=== PATIENT | male | born 1945 | race Caucasian/White ===

== ENCOUNTER 2017-03-03 11:16 | Inpatient (IN) | payer OTHER, MEDICARE ==
--- NOTE | 2017-03-03 11:28 | ER Document Report ---
ED Medical Screen (RME) - General Chief Complaint: General Weakness Stated Complaint: GENERAL WEAKNESS Time Seen by Provider: 03/03/17 11:26 Notes: Patient reports severe weakness for 1 week. He states she has had nausea but no vomiting. He denies diarrhea. He states he does take a diuretic. He states he has severe shortness of breath with exertion. He states if he tries to brush his teeth he has to sit down from being tired. TRAVEL OUTSIDE OF THE [place] IN LAST 30 DAYS: No - Related Data Allergies/Adverse Reactions: No Known Allergies Allergy (Verified 03/03/17 11:20) Past Medical History - Past Medical History Cardiac Medical History: Reports: Hx Hypercholesterolemia, Hx Hypertension Renal/ Medical History: Reports: Hx Kidney Stones. Denies: Hx Peritoneal Dialysis - Immunizations Hx Diphtheria, Pertussis, Tetanus Vaccination: Yes Physical Exam - Vital signs Vitals: Temp Pulse Resp BP Pulse Ox 98.3 F 93 18 115/92 H 97 03/03/17 11:21 03/03/17 11:21 03/03/17 11:21 03/03/17 11:21 03/03/17 11:21 Course - Vital Signs Vital signs: Temp Pulse Resp BP Pulse Ox 98.3 F 93 18 115/92 H 97 03/03/17 11:21 03/03/17 11:21 03/03/17 11:21 03/03/17 11:21 03/03/17 11:21
[2017-03-03 12:12] LABS: APPEARANCE,URINE SLIGHTLY-CLOUDY; BILIRUBIN,URINE NEGATIVE (NEGATIVE); GLUCOSE, URINE NEGATIVE (NEGATIVE); KETONES,URINE NEGATIVE (NEGATIVE); LEUKOCYTE ESTERASE,URINE MODERATE (NEGATIVE); NITRITE,URINE NEGATIVE (NEGATIVE); PROTEIN,URINE 30 mg/dL (NEGATIVE); URINE SPECIFIC GRAVITY 1.017
[2017-03-03 12:25] LABS: ALANINE AMINOTRANSFERASE 150 U/L (21-72); ALBUMIN 3.8 g/dL (3.5-5.0); ALKALINE PHOSPHATASE 201 U/L (38-126); ANION GAP 19 (5-19); ASPARTATE AMINO TRANSFERASE 109 U/L (17-59); BILIRUBIN,DIRECT 0.7 mg/dL (0.0-0.4); BILIRUBIN,TOTAL 1.1 mg/dL (0.2-1.3); BLOOD UREA NITROGEN 79 mg/dL (7-20); CALCIUM 9.8 mg/dL (8.4-10.2); CARBON DIOXIDE 17 mmol/L (22-30); CHLORIDE 99 mmol/L (98-107); CREATININE RESULT 4.56 mg/dL (0.52-1.25); GLUCOSE 122 mg/dL (75-110); MAGNESIUM 2.7 mg/dL (1.6-2.3); POTASSIUM 4.3 mmol/L (3.6-5.0); SODIUM 135.3 mmol/L (137-145)
[2017-03-03] MEDS ORDERED: NORMAL SALINE 1000 ML 1,000 ML IV ONE ×2 (12:35→19:54)
--- NOTE | 2017-03-03 12:45 | ER Document Report ---
ED General - General Chief Complaint: General Weakness Stated Complaint: GENERAL WEAKNESS Time Seen by Provider: 03/03/17 11:26 Notes: Patient says he has been experiencing extreme weakness, "totally exhausted" and no appetite for the past week. He also had symptoms of a UTI with urgency and frequency one week ago and saw his primary care physician who diagnosed him with a UTI and put him on an antibiotic. He says he is taking it twice a day and will be finished tomorrow. All of the UTI symptoms resolved, but the weakness and other symptoms have continued. He has been nauseated and had some dry heaves, but not actually vomiting because he has not been eating or drinking much. Has not had any change in his bowel movements. No blood in his stools. Patient denies any fever although he has felt some chills. Has felt extreme shortness of breath on exertion such as when he gets up to go to brush his teeth. Patient went to see his primary care provider today who referred him here for workup and evaluation for possible dehydration. Patient has a history of prostate condition. He describes having had a cystoscopy at the end of December. Following that procedure, the patient developed a UTI and was also treated with an antibiotic at that time. He is to have laser surgery on his prostate by Dr. Young, urologist in [place]. TRAVEL OUTSIDE OF THE [place] IN LAST 30 DAYS: No - Related Data Allergies/Adverse Reactions: No Known Allergies Allergy (Verified 03/03/17 11:20) Home Medications: Current Home Medications Ascorbic Acid [Vitamin C] 1,000 mg PO DAILY 03/03/17 [History] Aspirin [Aspirin 81 mg Chewable Tablet] 81 mg PO DAILY 03/03/17 [History] Hydrochlorothiazide 12.5 mg PO DAILY 03/03/17 [History] Losartan Potassium [Cozaar 100 mg Tablet] 100 mg PO DAILY 03/03/17 [History] Simvastatin [Zocor 20 mg Tablet] 20 mg PO DAILY 03/03/17 [History] Tamsulosin HCl 0.4 mg PO DAILY 03/03/17 [History] Past Medical History - Social History Smoking Status: Unknown if Ever Smoked Cigarette use (# per day): No Frequency of alcohol use: Occasional Family History: Reviewed & Not Pertinent Patient has suicidal ideation: No Patient has homicidal ideation: No - Past Medical History Cardiac Medical History: Reports: Hx Hypercholesterolemia, Hx Hypertension Endocrine Medical History: Denies: Hx Diabetes Mellitus Type 1, Hx Diabetes Mellitus Type 2 Renal/ Medical History: Reports: Hx Benign Prostatic Hyperplasia, Hx Kidney Stones. Denies: Hx End Stage Renal Disease, Hx Renal Insufficiency Malignancy Medical History: Reports None Past Surgical History: Reports: Other - Cystoscopy in Dec, 2016 - Immunizations Hx Diphtheria, Pertussis, Tetanus Vaccination: Yes Review of Systems - Review of Systems Notes: REVIEW OF SYSTEMS: CONSTITUTIONAL : Denies fever. Has had chills. EENT: Denies eye, ear, nose or mouth or throat pain or other symptoms. CARDIOVASCULAR: Denies chest pain. RESPIRATORY: Denies cough, chest congestion, feels shortness of breath with any even slight exertional activity. GASTROINTESTINAL: Denies abdominal pain. Has had nausea and dry heaves. No change in bowel movements. No blood in stools. GENITOURINARY: Denies difficulty or painful urinating, urinary frequency, blood in urine at this time. MUSCULOSKELETAL: Denies back or neck pain. Denies joint pain or swelling. SKIN: Denies rash or skin lesions. NEUROLOGICAL: Denies LOC or altered mental status. Denies headache. Denies sensory loss or motor deficits. Psychological: Patient says he is concerned and stressed over his health and what is going on currently, but denies being stressed from any other issues ( personal relations, money, etc). ALL OTHER SYSTEMS REVIEWED AND NEGATIVE. Physical Exam - Vital signs Vitals: Temp Pulse Resp BP Pulse Ox 98.3 F 93 18 115/92 H 97 03/03/17 11:21 03/03/17 11:21 03/03/17 11:21 03/03/17 11:21 03/03/17 11:21 Interpretation: Normal - Notes Notes: PHYSICAL EXAMINATION: GENERAL: Well-appearing, in no acute distress. Vital signs are all normal. HEAD: Atraumatic, normocephalic. ENT: oropharynx clear without exudates. Moist mucous membranes. NECK: Normal range of motion, supple. LUNGS: Breath sounds clear and equal bilaterally. HEART: Regular rate and rhythm without murmurs. ABDOMEN: Soft, nontender. No guarding or rebound. BACK: No tenderness throughout entire back. EXTREMITIES: Normal range of motion without pain. No pain or swelling of either lower extremity. Negative Homans bilaterally. NEUROLOGICAL: Normal speech, normal gait. Normal sensory, motor, and reflex exams. Awake, alert, and oriented x3. Cranial nerves normal. PSYCH: Normal mood, normal affect. SKIN: Warm, dry, no rashes. Course - Re-evaluation Re-evalutation: 03/03/17 14:52 I was able to obtain lab work from this patient's primary care provider and he had chemistry studies done March,, and he had normal BUN and almost normal creatinine. He also had an EKG done from 8 years ago which showed a sinus rhythm with an intraventricular conduction defect but no acute changes. 03/03/17 19:07 Earlier, I discussed this patient's case with his primary care provider, Dr. Morel, at [facility]. Since the patient has a urologist in [place] that goes to their hospital, we felt that it was reasonable to try to transfer the patient to that facility. I spoke with Dr. Allen, hospitalist documentation analyst, who did not feel the patient needed to be sent there unless they required a urologic procedure. I spoke to the urologist documentation analyst and he felt the same so I will try to have him admitted at this hospital for hydration. We do have a urologist documentation analyst this day. We will did a bladder scan showing the patient has about 218 mL of urine in his bladder. He had just emptied his bladder about 45 minutes earlier. Does not feel as if he needs to urinate now. I am advised that that amount of urine is acceptable. 03/03/17 21:18 Renal ultrasound shows mild hydronephrosis of the left kidney and some renal calculi, but no other significant findings. I spoke with Dr. Young who will admit the patient for treatment here at this facility. - Vital Signs Vital signs: Temp Pulse Resp BP Pulse Ox 98.3 F 93 17 108/68 97 03/03/17 11:21 03/03/17 11:21 03/03/17 16:01 03/03/17 16:00 03/03/17 16:01 - Laboratory Result Diagrams: 03/03/17 12:51 03/03/17 11:51 Laboratory results interpreted by me: 03/03/17 03/03/17 03/03/17 11:35 11:51 11:51 WBC Seg Neuts % (Manual) Lymphocytes % (Manual) Abs Neuts (Manual) D-Dimer 2.49 H Sodium 135.3 L Carbon Dioxide 17 L BUN 79 H Creatinine 4.56 H Est GFR ( Amer) 16 L Est GFR (Non-Af Amer) 13 L Glucose 122 H Magnesium 2.7 H Direct Bilirubin 0.7 H AST 109 H ALT 150 H Alkaline Phosphatase 201 H Urine Protein 30 H Urine Blood SMALL H Urine Urobilinogen 2.0 H Ur Leukocyte Esterase MODERATE H 03/03/17 12:51 WBC 13.8 H Seg Neuts % (Manual) 89 H Lymphocytes % (Manual) 4 L Abs Neuts (Manual) 12.3 H D-Dimer Sodium Carbon Dioxide BUN Creatinine Est GFR ( Amer) Est GFR (Non-Af Amer) Glucose Magnesium Direct Bilirubin AST ALT Alkaline Phosphatase Urine Protein Urine Blood Urine Urobilinogen Ur Leukocyte Esterase - Diagnostic Test Radiology reviewed: Image reviewed, Reports reviewed - Renal ultrasound showed mild hydronephrosis of the left kidney with some calcified stones in the kidneys , but no other significant abnormality. - EKG Interpretation by Nd EKG shows normal: Sinus rhythm Rate: Normal Rhythm: NSR, PVC's [facility]/QRS: RBBB Discharge - Discharge Clinical Impression: Urinary tract infection, Renal insufficiency, Dehydration Condition: Stable Disposition: ADMITTED INPATIENT Admitting Provider: Hospitalist Unit Admitted: IMCU Referrals: YUE SUAREZ MD [Primary Care Provider] - Follow up as needed
[2017-03-03 13:10] LABS: HEMOGLOBIN 14.2 g/dL (13.5-17.0); HGB HCT DIFFERENCE 1.6; MEAN CORPUSCULAR HEMOGLOBIN 31.9 pg (27.0-33.4); MEAN CORPUSCULAR HGB CONC 34.5 g/dL (32.0-36.0); MEAN CORPUSCULAR VOLUME 92 fl (80-97); RED BLOOD COUNT 4.44 10^6/uL (4.35-5.55); WHITE BLOOD COUNT 13.8 10^3/uL (4.0-10.5)
--- NOTE | 2017-03-03 13:24 | RADIOLOGY REPORT (SQ) ---
EXAM DESCRIPTION: CHEST PA/LAT COMPLETED DATE/TIME: 03/03/2017 1:15 pm REASON FOR STUDY: Exertional S OB COMPARISON: 06/11/2011. EXAM PARAMETERS: NUMBER OF VIEWS: two views TECHNIQUE: Digital Frontal and Lateral radiographic views of the chest acquired. RADIATION DOSE: NA LIMITATIONS: none FINDINGS: LUNGS AND PLEURA: No opacities, masses or pneumothorax. No pleural effusion. MEDIASTINUM AND HILAR STRUCTURES: No masses or contour abnormalities. HEART AND VASCULAR STRUCTURES: Heart normal size. No evidence for failure. BONES: No acute findings. Degenerative changes in the spine. HARDWARE: None in the chest. OTHER: No other significant finding. IMPRESSION: NO SIGNIFICANT RADIOGRAPHIC FINDING IN THE CHEST. TECHNICAL DOCUMENTATION: JOB ID: [id number] [employer]- All Rights Reserved
[2017-03-03 13:39] LABS: BASOPHILS % (MANUAL) 0 % (0-2); EOSINOPHILS % (MANUAL) 0 % (0-6); LYMPHOCYTES % (MANUAL) 4 % (13-45); TOTAL CELLS COUNTED 100
[2017-03-03 13:41] LABS: BURR CELLS SLIGHT; PLATELET CLUMPS PRESENT; POIKILOCYTOSIS SLIGHT; TOXIC GRANULATION SLIGHT
[2017-03-03] MEDS ORDERED: CEFTRIAXONE 2 GM/D5W RTU 50 ML IV ONE (14:04)
[2017-03-03 15:19] LABS: THYROID STIMULATING HORMONE 1.17 uIU/mL (0.47-4.68)
--- NOTE | 2017-03-03 15:35 | RADIOLOGY REPORT (SQ) ---
EXAM DESCRIPTION: NM LUNG VENT/PERF SCAN COMPLETED DATE/TIME: 03/03/2017 3:26 pm REASON FOR STUDY: Shortness of breath, positive d-dimer COMPARISON: None. RADIONUCLIDE AND DOSE: 5.26 millicuries TC-99m MAA Intravenous 32.0 millicuries TC-99m DTPA Inhaled aerosol TECHNIQUE: Eight views of the lungs acquired post ventilation of DTPA aerosol. Eight matching views of the lungs acquired following injection of MAA. LIMITATIONS: None. FINDINGS: VENTILATION: Symmetric and homogeneous distribution of DTPA aerosol during ventilatory pha se. No significant areas of photopenia. PERFUSION: Perfusion images with normal homogenous activity and no wedge-shaped or segmental defects. No ventilation-perfusion mismatches. OTHER: No other significant finding. IMPRESSION: NORMAL VENTILATION-PERFUSION LUNG SCAN. NEGATIVE FOR PULMONARY EMBOLI. TECHNICAL DOCUMENTATION: JOB ID: [id number] [employer]- All Rights Reserved
--- NOTE | 2017-03-03 18:24 | EKG REPORT ---
SEVERITY:- ABNORMAL ECG - SINUS RHYTHM MULTIFORM VENTRICULAR PREMATURE COMPLEXES RIGHT BUNDLE BRANCH BLOCK : Confirmed by: Eliezer Rodriguez MD 03-Mar-2017 18:23:18
--- NOTE | 2017-03-03 21:04 | RADIOLOGY REPORT (SQ) ---
EXAM DESCRIPTION: U/S RETROPERITON (RENAL/AORTA) COMPLETED DATE/TIME: 03/03/2017 8:55 pm REASON FOR STUDY: UTIs, rule out obstructive uropathy COMPARISON: Abdominal CT scan dated March 2015 TECHNIQUE: Dynamic and static grayscale images acquired of the kidneys and bladder and recorded on P ACS. Additional selected color Doppler and spectral images recorded. LIMITATIONS: None. FINDINGS: RIGHT KIDNEY: 9 cm in length. Normal echogenicity. No solid or suspicious masses. N o hydronephrosis. No calcifications. LEFT KIDNEY: 11.8 cm in length. Normal echogenicity. No solid or suspicious masses. There is m ild hydronephrosis of left kidney. Multiple nonobstructing renal calculi are identified. BLADDER: No masses. OTHER FINDINGS: No other significant finding. IMPRESSION: Mild hydronephrosis of the left kidney. Multiple nonobstructing left renal calculi are identified. Other findings as noted above TECHNICAL DOCUMENTATION: JOB ID: [id number] [employer]- All Rights Reserved
[2017-03-03] MEDS ORDERED: ONDANSETRON HCL INJ/PF 4 MG/2 ML SDV IV PRN (21:17)
[2017-03-03] MEDS ORDERED: ACETAMINOPHEN 325 MG TABLET PO PRN (21:17)
[2017-03-03] MEDS ORDERED: IPRATROPIUM/ALBUTEROL 0.5-2.5 MG/3 ML AMPUL NEB PRN (21:17)
[2017-03-03] MEDS ORDERED: MAGNESIUM HYDROXIDE SUSP 30 ML UDCUP PO PRN (21:17)
[2017-03-03] MEDS ORDERED: NORMAL SALINE 1000 ML 1,000 ML IV SCH (21:30)
[2017-03-03] MEDS ORDERED: SIMVASTATIN 10 MG TABLET PO SCH (22:00)
[2017-03-03] MEDS: HEPARIN SOD (PORCINE) 5,000 UNIT/ML 1 ML SYRINGE SUBCUT SCH (22:58)
[2017-03-03 23:22] LABS: CREATINE KINASE MB 1.59 ng/mL (<4.55); TROPONIN I 0.015 ng/mL
--- NOTE | 2017-03-04 02:28 | PDOC H&P ---
History of Present Illness Admission Date/PCP: 03/03/17 21:17 YUE SUAREZ MD Patient complains of: Generalized weakness and polyuria History of Present Illness: KIMBERLY ENRIQUEZ is a 71 year old male with a past medical history of BPH, dyslipidemia and hypertension who has been in his usual state of health until approximately 48 hours prior to presentation developing severe generalized weakness and fatigue associated with polyuria and darkening of his urine. He recommends the symptoms as he has had several urinary tract infections following cystoscopy in December. He denies abdominal pain, diarrhea had some nausea. In the emergency room is found to have hypotension, tachycardia leukocytosis and acute kidney failure with a creatinine of 4.5. Ultrasound of the kidneys and bladder are otherwise unremarkable. He started on empiric antibiotics and IV fluid challenge then referred to the hospitalist for admission. Patient does admit any recent antibiotic though is unable to recall his name. Past Medical History Cardiac Medical History: Reports: Hyperlipidema, Hypertension Endocrine Medical History: Denies: Diabetes Mellitus Type 1, Diabetes Mellitus Type 2 Renal/ Medical History: Reports: Other - BPH Denies: End Stage Renal Disease Malignancy Medical History: Reports: None Past Surgical History Past Surgical History: Reports: Other - Cystoscopy in Dec, 2016 Social History Information Source: Patient Smoking Status: Never Smoker Frequency of Alcohol Use: Rare Hx Recreational Drug Use: No Drugs: None Hx Prescription Drug Abuse: No - Advance Directive Resuscitation Status: Full Code Family History Family History: Hypertension Parental Family History Reviewed: Yes Children Family History Reviewed: Yes Sibling(s) Family History Reviewed.: Yes Medication/Allergy Home Medications: Ascorbic Acid [Vitamin C] 1,000 mg PO DAILY 03/03/17 Aspirin [Aspirin 81 mg Chewable Tablet] 81 mg PO DAILY 03/03/17 Hydrochlorothiazide 12.5 mg PO DAILY 03/03/17 Losartan Potassium [Cozaar 100 mg Tablet] 100 mg PO DAILY 03/03/17 Simvastatin [Zocor 20 mg Tablet] 20 mg PO DAILY 03/03/17 Tamsulosin HCl 0.4 mg PO DAILY 03/03/17 Allergies/Adverse Reactions: No Known Allergies Allergy (Verified 03/03/17 11:20) Review of Systems Constitutional: ABSENT: chills, fever(s), headache(s), weight gain, weight loss Eyes: ABSENT: visual disturbances Ears: ABSENT: hearing changes Cardiovascular: ABSENT: chest pain, dyspnea on exertion, edema, orthropnea, palpitations Respiratory: ABSENT: cough, hemoptysis Gastrointestinal: ABSENT: abdominal pain, constipation, diarrhea, hematemesis, hematochezia, nausea, vomiting Genitourinary: ABSENT: dysuria, hematuria Musculoskeletal: ABSENT: joint swelling Integumentary: ABSENT: rash, wounds Neurological: ABSENT: abnormal gait, abnormal speech, confusion, dizziness, focal weakness, syncope Psychiatric: ABSENT: anxiety, depression, homidical ideation, suicidal ideation Endocrine: ABSENT: cold intolerance, heat intolerance, polydipsia, polyuria Hematologic/Lymphatic: ABSENT: easy bleeding, easy bruising Physical Exam Vital Signs: Temp Pulse Resp BP Pulse Ox 97.7 F 84 18 116/59 L 98 03/04/17 00:22 03/04/17 01:17 03/04/17 00:22 03/04/17 00:22 03/04/17 00:22 Intake & Output 03/02/17 03/03/17 03/04/17 11:59 11:59 11:59 Weight 96 kg General appearance: PRESENT: cooperative, mild distress, well-developed, well- nourished Head exam: PRESENT: atraumatic, normocephalic Eye exam: PRESENT: conjunctiva pink, EOMI, PERRLA. ABSENT: scleral icterus Ear exam: PRESENT: normal external ear exam Mouth exam: PRESENT: moist, tongue midline Neck exam: ABSENT: carotid bruit, JVD, lymphadenopathy, thyromegaly Respiratory exam: PRESENT: clear to auscultation karin. ABSENT: rales, rhonchi, wheezes Cardiovascular exam: PRESENT: RRR. ABSENT: diastolic murmur, rubs, systolic murmur Pulses: PRESENT: normal dorsalis pedis pul Vascular exam: PRESENT: normal capillary refill GI/Abdominal exam: PRESENT: distended, hypoactive bowel sounds, normal bowel sounds, soft. ABSENT: firm, guarding, hernia, mass, organolmegaly, rebound, tenderness Rectal exam: PRESENT: deferred Gentrourinary exam: ABSENT: ecchymosis, scrotal swelling, urethral discharge Extremities exam: PRESENT: full ROM. ABSENT: calf tenderness, clubbing, pedal edema Neurological exam: PRESENT: alert, awake, oriented to person, oriented to place , oriented to time, oriented to situation, CN II-XII grossly intact. ABSENT: motor sensory deficit Psychiatric exam: PRESENT: appropriate affect, normal mood. ABSENT: homicidal ideation, suicidal ideation Skin exam: PRESENT: dry, intact, warm. ABSENT: cyanosis, rash Results Laboratory Results: 03/03/17 03/03/17 22:39 22:39 Creatine Kinase 121 CK-MB (CK-2) 1.59 Troponin I 0.015 Impressions: Chest X-Ray 03/03/17 12:45 IMPRESSION: NO SIGNIFICANT RADIOGRAPHIC FINDING IN THE CHEST. Lung Scan-VQ NM 03/03/17 14:04 IMPRESSION: NORMAL VENTILATION-PERFUSION LUNG SCAN. NEGATIVE FOR PULMONARY EMBOLI. Renal Ultrasound 03/03/17 19:51 IMPRESSION: Mild hydronephrosis of the left kidney. Multiple nonobstructing left renal calculi are identified. Other findings as noted above Assessment & Plan - Diagnosis (1) Sepsis Is this a current diagnosis for this admission?: YesPlan: Secondary to urinary tract infection complicated by BPH suggested by history and workup. He is receiving IV Rocephin and IV fluid challenge and symptomatic management following up chemistry, CBC, blood and urine culture (2) Hypotension Is this a current diagnosis for this admission?: YesPlan: Secondary to urinary tract infection. No evidence for complicating obstruction no urinary bladder distention no hydronephrosis. He is receiving empiric IV antibiotics and IV fluid with consideration of pressors as needed. (3) Acute renal failure Is this a current diagnosis for this admission?: YesPlan: Multifactorial secondary to sepsis, dehydration and possibly medication given recent new antibiotic. He is receiving IV fluid challenge. Follow-up urinalysis, chemistry and nephrology consult. (4) UTI (urinary tract infection) Is this a current diagnosis for this admission?: YesPlan: Complicated by BPH, empiric antibiotics, terazosin tolerated follow-up CBC, blood and urine culture - Time Time Spent: 30 to 50 Minutes - Inpatient Certification Medical Necessity: Need Close Monitoring Due to Risk of Patient Decompensation
[2017-03-04] MEDS: HEPARIN SOD (PORCINE) 5,000 UNIT/ML 1 ML SYRINGE SUBCUT SCH ×3 (05:24→21:21)
[2017-03-04 07:07] LABS: ABSOLUTE LYMPHOCYTES (AUTO) 0.6 10^3/uL (0.5-4.7); ABSOLUTE MONOCYTES (AUTO) 0.7 10^3/uL (0.1-1.4); ABSOLUTE NEUT (AUTO) 8.8 10^3/uL (1.7-8.2); BASOPHILS % (AUTO) 0.2 % (0-2); EOSINOPHILS % (AUTO) 0.4 % (0-6); HEMATOCRIT 38.2 % (37.9-51.0); HGB HCT DIFFERENCE 0.8; LYMPHOCYTES % (AUTO) 6.1 % (13-45); MEAN CORPUSCULAR HEMOGLOBIN 31.6 pg (27.0-33.4); MEAN CORPUSCULAR HGB CONC 34.1 g/dL (32.0-36.0); MEAN CORPUSCULAR VOLUME 93 fl (80-97); MONOCYTES % (AUTO) 6.7 % (3-13); RED BLOOD COUNT 4.12 10^6/uL (4.35-5.55); RED CELL DISTRIBUTION WIDTH 13.9 % (11.5-14.0); SEGMENTED NEUTROPHILS % (AUTO) 86.6 % (42-78); WHITE BLOOD COUNT 10.1 10^3/uL (4.0-10.5)
[2017-03-04 07:28] LABS: ANION GAP 15 (5-19); BLOOD UREA NITROGEN 69 mg/dL (7-20); CALCIUM 8.5 mg/dL (8.4-10.2); CARBON DIOXIDE 17 mmol/L (22-30); CHLORIDE 106 mmol/L (98-107); CREATININE RESULT 3.28 mg/dL (0.52-1.25); GLUCOSE 97 mg/dL (75-110); POTASSIUM 4.7 mmol/L (3.6-5.0); SODIUM 137.5 mmol/L (137-145)
[2017-03-04] MEDS ORDERED: ONDANSETRON HCL INJ/PF 4 MG/2 ML SDV IV PRN (09:47)
--- NOTE | 2017-03-04 10:51 | PROGRESS NOTE E ---
Progress Note NAME: KIMBERLY ENRIQUEZ : 1945 AGE: 71Y DATE: 03/04/2017 ROOM: 331 SUBJECTIVE: The patient is lying in bed. He states he feels much better today than he did yesterday. The patient denies any vomiting, shortness of breath, dizziness, chest pain. No fevers or chills. He does admit to some nausea. The patient states that he had not been drinking or eating much prior to admission for about 3 days. The patient does not voice any other concerns at this time. REVIEW OF SYSTEMS: The rest of the review of systems is negative. MEDICATIONS: Medications have been reviewed. OBJECTIVE: GENERAL: The patient is a 71-year-old male who is awake, alert, and oriented to person, place, time, and situation. He is verbal, conversational, does not appear to be in any acute distress. VITAL SIGNS: As follows: Temperature is 98.4, pulse 83, respirations 16, blood pressure 113/69, oxygen saturation is 97% on room air. SKIN: Warm and dry. No rash, not diaphoretic. HEENT: Pupils equal, round, and reactive to light and accommodation. Conjunctivae pink. No JVP. CARDIOVASCULAR: Heart is regular. There is no murmur or rub. CHEST: Clear, symmetrical, unlabored. ABDOMEN: Soft, nontender, nondistended. BACK: No CVA tenderness or sacral edema. EXTREMITIES: No clubbing, cyanosis, edema. DIAGNOSTICS: Lab values are as follows. Hematology obtained on 03/04/2017: WBCs are 10.1, hemoglobin 13, hematocrit 38.2, platelet count is 220,000. Chemistry obtained on 03/04/2017: Sodium is 137, potassium 4.7, chloride is 106, carbon dioxide 17, BUN 69, creatinine 3.28, glucose 97, calcium is 8.5. Urine culture obtained on 03/03/2017 is pending. Blood cultures obtained on 03/03/2017 are pending. IMPRESSION AND PLAN: 1. URINARY TRACT INFECTION. Most likely the cultures are going to be skewed given that the patient was on Bactrim outpatient. However, if the patient's symptoms persist, will continue with Rocephin as the patient has made improvement in his white count and symptoms have overall improved. 2. SEPSIS PRESENT ON ADMISSION SECONDARY TO THE ABOVE. The patient has responded very well to volume. Given the patient's white count and hypotension, this has continued to improve. 3. ACUTE KIDNEY INJURY. This is multifocal and most likely due to sulfa, DONTA inhibitors, thiazide diuretics as well as prerenal azotemia. Will hold all offending agents and continue to aggressively hydrate. Will repeat creatinine in the a.m. and follow. 4. METABOLIC ACIDOSIS SECONDARY TO THE ABOVE. Overall this is improved. 5. ABNORMAL LFTs, COULD POSSIBLY BE DUE TO BACTRIM. Will repeat LFTs in the a.m. and follow. 6. HYPERLIPIDEMIA. Will hold the patient's statin given the elevation in LFTs. 7. DVT PROPHYLAXIS. Will continue subcutaneous heparin. DISPOSITION: THE PATIENT IS A FULL CODE. Pending the patient's symptomatology and diagnostic findings, will re-evaluate in the a.m. Time spent on this followup, including assessment/plan, physical examination, patient education, is 25 minutes. DICTATING PHYSICIAN: YUE HENRY NP [id number] PHY#: [id number] ID: [id number] JOB#: [id number] ACCT: [id number] cc: >
[2017-03-04] MEDS: ASCORBIC ACID 500 MG TABLET PO SCH (11:11)
[2017-03-04] MEDS: DOCUSATE SODIUM 100 MG CAPSULE PO SCH ×2 (11:11→17:24)
[2017-03-04] MEDS: ASPIRIN 81 MG TABLET, CHEWABLE PO SCH (11:11)
[2017-03-04] MEDS: CEFTRIAXONE 1 GM/D5W RTU 50 ML IV SCH (11:12)
[2017-03-04] MEDS: NORMAL SALINE 1000 ML 1,000 ML IV PRN (11:13)
[2017-03-04] MEDS: TAMSULOSIN HCL 0.4 MG CAP.SR.24H PO SCH (17:24)
[2017-03-05] MEDS: NORMAL SALINE 1000 ML 1,000 ML IV PRN ×2 (00:03→11:36)
[2017-03-05] MEDS: HEPARIN SOD (PORCINE) 5,000 UNIT/ML 1 ML SYRINGE SUBCUT SCH ×3 (05:32→21:18)
[2017-03-05 06:04] LABS: ABSOLUTE EOSINOPHILS # (AUTO) 0.1 10^3/uL (0.0-0.6); ABSOLUTE LYMPHOCYTES (AUTO) 0.6 10^3/uL (0.5-4.7); ABSOLUTE MONOCYTES (AUTO) 0.6 10^3/uL (0.1-1.4); ABSOLUTE NEUT (AUTO) 8.3 10^3/uL (1.7-8.2); BASOPHILS % (AUTO) 0.3 % (0-2); HEMATOCRIT 34.7 % (37.9-51.0); HGB HCT DIFFERENCE 1.3; LYMPHOCYTES % (AUTO) 6.6 % (13-45); MEAN CORPUSCULAR HEMOGLOBIN 32.3 pg (27.0-33.4); MEAN CORPUSCULAR HGB CONC 34.5 g/dL (32.0-36.0); MEAN CORPUSCULAR VOLUME 94 fl (80-97); MONOCYTES % (AUTO) 6.3 % (3-13); RED BLOOD COUNT 3.72 10^6/uL (4.35-5.55); RED CELL DISTRIBUTION WIDTH 14.2 % (11.5-14.0); SEGMENTED NEUTROPHILS % (AUTO) 85.8 % (42-78); WHITE BLOOD COUNT 9.7 10^3/uL (4.0-10.5)
[2017-03-05 06:25] LABS: ANION GAP 11 (5-19); BLOOD UREA NITROGEN 51 mg/dL (7-20); CALCIUM 8.6 mg/dL (8.4-10.2); CARBON DIOXIDE 18 mmol/L (22-30); CHLORIDE 109 mmol/L (98-107); CREATININE RESULT 2.47 mg/dL (0.52-1.25); GLUCOSE 112 mg/dL (75-110); SODIUM 138.3 mmol/L (137-145)
[2017-03-05] MEDS ORDERED: ONDANSETRON 4 MG TAB.RAPDIS PO PRN (08:11)
--- NOTE | 2017-03-05 08:43 | PROGRESS NOTE E ---
Progress Note NAME: KIMBERLY ENRIQUEZ : 1945 AGE: 71Y DATE: 03/05/2017 ROOM: 331 SUBJECTIVE: The patient is currently lying in bed. He states that he is feeling much better today. He is out of bed to the bedside chair actually. The patient denies any nausea, vomiting, diarrhea. No shortness of breath, dizziness, chest pain. No fevers, chills. Patient has been afebrile. Blood pressure has been in a good range. Patient does not voice any other concerns at this time. REVIEW OF SYSTEMS: Rest of review of systems negative. MEDICATIONS: Medications have been reviewed. OBJECTIVE: GENERAL: The patient is awake, alert, and oriented to person, place, time, and situation. He is verbal, conversational, ambulatory, does not appear to be in any acute distress. VITAL SIGNS: Temperature is 98.5, pulse 69, respirations 16, blood pressure is 101/62, oxygen saturation is 99% on room air. SKIN: Warm and dry. No rash. Not diaphoretic. HEENT: Pupils equal, round, and reactive to light and accommodation. Conjunctivae pink. No JVP. CARDIOVASCULAR SYSTEM: Heart is regular. There is no murmur or rub. CHEST: Clear, symmetrical, unlabored. ABDOMEN: Soft, nontender, nondistended. BACK: No CVA tenderness or sacral edema. EXTREMITIES: No clubbing, cyanosis, edema. PSYCHIATRIC: Appropriate affect, pleasant mood. DIAGNOSTICS: Lab values are as follows: Hematology obtained on 03/05/2017: WBCs are 9.7, hemoglobin is 12.0, hematocrit is 34.7, platelet count is 240,000. Chemistry obtained on 03/05/2017: Sodium is 138, potassium 4.0, chloride is 109, carbon dioxide is 18, BUN 51, creatinine is 2.47. Glucose 112, calcium is 8.6. IMPRESSION AND PLAN: 1. URINARY TRACT INFECTION. The patient's cultures are skewed given that he was on Bactrim on outpatient basis. However, the symptoms have much improved with Rocephin. White count has normalized. Will continue Rocephin and follow. 2. SEPSIS, PRESENT ON ADMISSION SECONDARY TO THE ABOVE. The patient responded very well to volume. His white count has normalized. Hypotension has resolved. 3. ACUTE KIDNEY INJURY, MULTIFOCAL, MOST LIKELY DUE TO SULFA, DONTA INHIBITORS, THIAZIDE, DIURETICS, DEHYDRATION, AND INFECTIOUS PROCESS. Have held the offending agents and will continue to aggressively hydrate. Repeat creatinine continues to improve. 4. METABOLIC ACIDOSIS SECONDARY TO THE ABOVE. Overall, have improved. 5. ABNORMAL LFTS MOST LIKELY DUE TO BACTRIM. His repeat LFTs will be completed in the morning. Have held his statin as well. 6. DVT PROPHYLAXIS. Will continue subcu heparin. DISPOSITION: The patient is a FULL CODE. Pending patient's symptomatology and diagnostic findings, will re-evaluate in the a.m. The patient can be downgraded to a medical bed. The patient is eager to ambulate. Will encourage ambulation in the hallway. Time spent on this followup including assessment, plan, physical examination, patient education is 25 minutes. DICTATING PHYSICIAN: YUE HENRY NP [id number] PHY#: [id number] ID: [id number] JOB#: [id number] ACCT: [id number] cc: >
[2017-03-05] MEDS ORDERED: NORMAL SALINE 500 ML IV ONE (09:00)
[2017-03-05] MEDS: CEFTRIAXONE 1 GM/D5W RTU 50 ML IV SCH (09:08)
[2017-03-05] MEDS: DOCUSATE SODIUM 100 MG CAPSULE PO SCH ×2 (09:08→17:22)
[2017-03-05] MEDS: ASCORBIC ACID 500 MG TABLET PO SCH (09:09)
[2017-03-05] MEDS: ASPIRIN 81 MG TABLET, CHEWABLE PO SCH (09:09)
[2017-03-05] MEDS ORDERED: MAGNESIUM HYDROXIDE SUSP 30 ML UDCUP PO PRN (15:27)
[2017-03-05] MEDS ORDERED: ACETAMINOPHEN 325 MG TABLET PO PRN (15:28)
[2017-03-05] MEDS: TAMSULOSIN HCL 0.4 MG CAP.SR.24H PO SCH (17:22)
[2017-03-06] MEDS: NORMAL SALINE 1000 ML 1,000 ML IV PRN ×3 (00:57→23:51)
[2017-03-06] MEDS: HEPARIN SOD (PORCINE) 5,000 UNIT/ML 1 ML SYRINGE SUBCUT SCH (05:18)
[2017-03-06 06:05] LABS: ALANINE AMINOTRANSFERASE 96 U/L (21-72); ALKALINE PHOSPHATASE 176 U/L (38-126); ANION GAP 12 (5-19); ASPARTATE AMINO TRANSFERASE 53 U/L (17-59); BILIRUBIN,DIRECT 0.5 mg/dL (0.0-0.4); BILIRUBIN,TOTAL 0.9 mg/dL (0.2-1.3); BLOOD UREA NITROGEN 44 mg/dL (7-20); CALCIUM 9.1 mg/dL (8.4-10.2); CARBON DIOXIDE 19 mmol/L (22-30); CHLORIDE 111 mmol/L (98-107); CREATININE RESULT 2.19 mg/dL (0.52-1.25); GLUCOSE 96 mg/dL (75-110); POTASSIUM 5.3 mmol/L (3.6-5.0); SODIUM 141.7 mmol/L (137-145); TOTAL PROTEIN 6.1 g/dL (6.3-8.2)
[2017-03-06] MEDS ORDERED: NORMAL SALINE 1000 ML 1,000 ML IV PRN (08:40)
[2017-03-06 08:45] LABS: APPEARANCE,URINE CLEAR; BILIRUBIN,URINE NEGATIVE (NEGATIVE); GLUCOSE, URINE NEGATIVE (NEGATIVE); KETONES,URINE NEGATIVE (NEGATIVE); LEUKOCYTE ESTERASE,URINE NEGATIVE (NEGATIVE); NITRITE,URINE NEGATIVE (NEGATIVE); PROTEIN,URINE NEGATIVE (NEGATIVE); URINE SPECIFIC GRAVITY 1.011; UROBILINOGEN,URINE NEGATIVE mg/dL (<2.0)
--- NOTE | 2017-03-06 09:10 | PROGRESS NOTE E ---
Progress Note NAME: KIMBERLY ENRIQUEZ : 1945 AGE: 71Y DATE: 03/06/2017 ROOM: 527 SUBJECTIVE: The patient is currently out of bed to the bedside chair. He states that he feels good today. He denies any nausea, vomiting, diarrhea. No shortness of breath, dizziness or chest pain. No fevers or chills. The patient has been afebrile, blood pressure has been in a good range, and the patient does not voice any other concerns at this time. He has been ambulating in the hallway. REVIEW OF SYSTEMS: The rest of the review of systems is negative. MEDICATIONS: Medications have been reviewed. OBJECTIVE: GENERAL: The patient is a 71-year-old male who is awake, alert, and oriented to person, place, time, and situation. He is verbal, conversational, ambulatory. He does not appear to be in any acute distress. VITAL SIGNS: As follows: Temperature is 98.8, pulse 80, respirations 16, blood pressure 116/61, oxygen saturation is 97% on room air. SKIN: Warm and dry. No rash. He is not diaphoretic. HEENT: Pupils equal, round, and reactive to light and accommodation. Conjunctiva is pink. Sclerae is nonicteric. There is no JVP. CARDIOVASCULAR: Heart is regular. There is no murmur or rub. CHEST: Clear, symmetrical, unlabored. ABDOMEN: Soft, nontender, nondistended. Bowel sounds are present. No palpable organomegaly. BACK: No CVA tenderness or sacral edema. EXTREMITIES: No clubbing, cyanosis, edema. PSYCHIATRIC: Appropriate affect. Pleasant mood. DIAGNOSTICS: Lab values are as follows. Hematology obtained on 03/05/2017: WBCs are 9.7, hemoglobin is 12, hematocrit is 34.7, platelet count is 240,000. Chemistry obtained on 03/06/2017: Sodium is 141, potassium 5.3, chloride is 111, carbon dioxide 19, BUN 44, creatinine is 2.19, glucose 96, calcium is 9.1, bilirubin is 0.9, AST 63, ALT is 96, alk phos 167, total protein 6.1, albumin 3. IMPRESSION AND PLAN: 1. URINARY TRACT INFECTION. The patient's cultures were skewed given that he was on Bactrim outpatient basis, although this has resolved. Continue Rocephin. White count normalized. Will follow. 2. SEPSIS PRESENT ON ADMISSION SECONDARY TO THE ABOVE. The patient responded very well to volume. His white count normalized and hypotension resolved. 3. ACUTE KIDNEY INJURY WHICH WAS MULTIFOCAL AND DUE TO SULFA, DONTA INHIBITORS, THIAZIDE, DIURETICS, DEHYDRATION, INFECTIOUS PROCESS AND HYPOTENSION. Have held offending agents. Will continue to aggressively hydrate. The patient has no evidence of volume overload. Repeat creatinine continues to improve. 4. METABOLIC ACIDOSIS SECONDARY TO THE ABOVE. Overall this has improved. 5. ABNORMAL LFTs, MOST LIKELY DUE TO BACTRIM. Repeat LFTs were normal. Have held statin as well. 6. DVT PROPHYLAXIS. Will continue subcutaneous heparin. DISPOSITION: THE PATIENT IS A FULL CODE. Pending the patient's symptomatology and diagnostic findings, will re-evaluate in the a.m. The patient most likely will be able to be discharged in the a.m. Time spent on this followup, including assessment/plan, physical examination, patient education, is 20 minutes. DICTATING PHYSICIAN: YUE HENRY NP [id number] PHY#: [id number] ID: [id number] JOB#: [id number] ACCT: [id number] cc: >
[2017-03-06] MEDS: DOCUSATE SODIUM 100 MG CAPSULE PO SCH ×2 (10:40→17:56)
[2017-03-06] MEDS: ASCORBIC ACID 500 MG TABLET PO SCH (10:40)
[2017-03-06] MEDS: ASPIRIN 81 MG TABLET, CHEWABLE PO SCH (10:40)
[2017-03-06] MEDS: CEFTRIAXONE 1 GM/D5W RTU 50 ML IV SCH (10:41)
--- NOTE | 2017-03-06 11:59 | Physician Advisory Note ---
Physician Advisor ProgressNote .: Pursuant to the plan for [facility], I have reviewed the medical record for this patient. Physician Advisor Statement: Please consider documenting, if you agree: 1. "Mild acute hyponatremia, likely due to intravascular volume depletion, resolved after fluid resuscitation" 2. "Acute metabolic acidosis, likely due to ...." [just to keep reviewers from saying "but attg didn't say it was acute, so it could have been chronic"] Thanks! CK
[2017-03-06] MEDS: TAMSULOSIN HCL 0.4 MG CAP.SR.24H PO SCH (17:56)
[2017-03-07] MEDS: NORMAL SALINE 1000 ML 1,000 ML IV PRN (06:25)
[2017-03-07 08:18] LABS: ANION GAP 13 (5-19); BLOOD UREA NITROGEN 30 mg/dL (7-20); CALCIUM 8.4 mg/dL (8.4-10.2); CARBON DIOXIDE 14 mmol/L (22-30); CHLORIDE 111 mmol/L (98-107); CREATININE RESULT 1.71 mg/dL (0.52-1.25); GLUCOSE 130 mg/dL (75-110); POTASSIUM 4.5 mmol/L (3.6-5.0)
[2017-03-07] MEDS: ASPIRIN 81 MG TABLET, CHEWABLE PO SCH (09:07)
[2017-03-07] MEDS: ASCORBIC ACID 500 MG TABLET PO SCH (09:07)
[2017-03-07] MEDS: DOCUSATE SODIUM 100 MG CAPSULE PO SCH (09:07)
--- NOTE | 2017-03-07 10:02 | DISCHARGE SUMMARY E ---
Discharge Summary NAME: KIMBERLY ENRIQUEZ : 1945 AGE: 71Y ADMITTED: 03/03/2017 DISCHARGED: 03/07/2017 CODE STATUS: FULL CODE. PRIMARY CARE PROVIDER: Dr. Moreno DISCHARGE DIAGNOSES: Includes: 1. Urinary tract infection. 2. Sepsis, present on admission secondary to the above, which is resolved. 3. Acute kidney injury, which was multifocal. 4. Acute metabolic acidosis. 5. Abnormal LFTs, which resolved. 6. Mild acute hyponatremia, which has resolved, most likely due to intervascular volume depletion. DISCHARGE MEDICATIONS: Include: 1. Ceftin 500 mg p.o. b.i.d., 8 tablets, 0 refills. 2. Zocor 20 mg p.o. daily. 3. Flomax 0.4 mg p.o. daily. 4. Aspirin 81 mg p.o. daily. 5. Vitamin C 1000 mg p.o. daily. DIET: As tolerated. ACTIVITY: As tolerated. DIAGNOSTICS: Lab values are as follows: Hematology obtained on 03/05/2017: WBCs are 9.7, hemoglobin is 12.0, hematocrit is 34.7, platelet count is 240,000. Chemistry obtained on 03/07/2017: Sodium is 138, potassium 4.5, chloride is 111, carbon dioxide is 19, BUN 30, creatinine is 1.71, glucose 130, calcium is 8.4, magnesium 2.5, bilirubin is 0.9. AST 53, ALT is 96, Alk phos 176, CK 121, CK-MB is 1.59. Troponin is 0.015, total protein 6.1, albumin 3.0, TSH is 1.17. Free T4 is 1.85. Urinalysis obtained on 03/06/2017: Color yellow, appearance clear. PH is 5.0, specific gravity is 1.011. Protein negative, glucose negative, ketones negative, occult blood negative, nitrate negative, bilirubin negative, urobilinogen is negative, leukocyte esterase is negative. WBCs 1, RBCs 2, mucus rare, ascorbic acid is negative. Microbiology: Blood cultures obtained on 03/03/2017 reveal no growth. Urine culture obtained on 03/03/2017 reveals no growth. Chest x-ray obtained on 03/03/2017 reveals no significant radiographic finding of the chest. V/Q scan obtained on 03/03/2017 reveals a normal perfusion and ventilation lung scan, negative for pulmonary emboli. Renal ultrasound obtained on 03/03/2017 reveals multiple non-obstructive left renal calculi identified. EKG obtained on 03/03/2017 reveals sinus rhythm with a right bundle branch block. PHYSICAL EXAMINATION: GENERAL: On examination, the patient is a well-developed, well-nourished 71-year-old male who is awake, alert, and oriented to person, place, time, and situation. He is verbal, conversational, ambulatory, does not appear to be in acute distress. VITAL SIGNS: Temperature is 98.0, pulse 76, respirations 17, blood pressure is 117/69, oxygen saturation is 98% on room air. SKIN: Warm and dry. No rash. Not diaphoretic. HEENT: Pupils equal, round, and reactive to light and accommodation. Conjunctivae pink. No JVP. CARDIOVASCULAR SYSTEM: Heart is regular. There is no murmur or rub. CHEST: Clear, symmetrical, unlabored. ABDOMEN: Soft, nontender, nondistended. BACK: No CVA tenderness or sacral edema. EXTREMITIES: No clubbing, cyanosis, edema. PSYCHIATRIC: Appropriate affect. Pleasant mood. HISTORY OF PRESENT ILLNESS: The patient is a 71-year-old male with a past medical history of benign prostatic hyperplasia. The patient presented to the emergency department with a chief complaint of generalized weakness and polyuria. The patient had apparently been in his usual state of health until approximately 48 hours prior to presentation when he developed severe generalized weakness and fatigue associated with polyuria and darkening of the urine. The patient recognized the symptoms as he has had several urinary tract infections following a cystoscopy that he had done in December. The patient denied any abdominal pain, diarrhea, but did have some nausea. In the emergency room, the patient was found to be hypotensive, tachycardia with leukocytosis with evidence of acute renal failure with a creatinine of 4.5. Ultrasound of the kidneys and bladder were otherwise unremarkable. The patient was started on antibiotics as well as IV fluids, and the patient apparently had been on an DONTA inhibitor, thiazide diuretic, as well as Bactrim at home and had been referred to the hospitalist for admission and management. HOSPITAL COURSE: The patient was admitted to [facility]. The patient was aggressively hydrated and the patient's creatinine fell by a point almost daily. It appears that the patient's baseline creatinine has been in the 1.4 range according to labs back in 2010 that are available. The patient's admitting creatinine this go around was 4.56; however, it trended down nicely to 1.71. The patient is making excellent amount of urine and has had complete symptom resolution and is getting quite antsy for discharge. The patient was noted to have some acute metabolic acidosis with CO2 of 14; however, it trended up nicely to 19. The patient was mildly hyperkalemic at 5.3; however, this has improved to 4.5. The patient's urine improved on urinalysis, and the patient's urine did not have any growth because it skewed by antibiotic use. At discharge, I have recommended that the patient withhold his ARB and hydrochlorothiazide until followup BMP is obtained at his primary care provider's office. I have given the patient a copy of his creatinine history dating back to 2010 where his creatinine was found to be 1.4. The patient is ready for discharge. Time spent on this discharge including assessment, plan, physical examination, patient education is 25 minutes. DICTATING PHYSICIAN: YUE HENRY NP [id number] PHY#: [id number] ID: [id number] JOB#: [id number] ACCT: [id number] cc:EVELYN WILLS M.D. YUE HENRY NP >
[2017-03-07 10:32] VITALS: BP 126/57
== END 2017-03-07 11:24 | disposition home or self-care (01) | DRG 872 ==
LOC: ER 11:16 → EH 21:17 → 3S 03-04 00:17 → 5 03-05 11:00
PROVIDERS: ADMIT Internal Medicine; ATTEND Internal Medicine
DX: A41.9 Sepsis, unspecified organism (principal); N39.0 Urinary tract infection, site not specified; N17.9 Acute kidney failure, unspecified; E87.2 Acidosis; E87.1 Hypo-osmolality and hyponatremia; E87.5 Hyperkalemia; E86.9 Volume depletion, unspecified; N40.0 Benign prostatic hyperplasia without lower urinary tract symptoms; I10 Essential (primary) hypertension; E78.5 Hyperlipidemia, unspecified; Z79.82 Long term (current) use of aspirin; Z79.899 Other long term (current) drug therapy
CPT/HCPCS: 36415; 71020; 76770; 78582; 80048; 80053; 80076; 81001; 82550; 82553; 83735; 84439; 84443; 84484; 85025; 85379; 87040; 87086; 93005; 93010; 96361; 96365; 99285; A9540; A9567; J0696; J1644; J7030; J7040; Q9969

== ENCOUNTER 2018-08-07 06:15 | Emergency (ER) | payer MEDICARE, OTHER ==
[2018-08-07 08:03] LABS: APPEARANCE,URINE CLEAR; BILIRUBIN,URINE NEGATIVE (NEGATIVE); COLOR,URINE YELLOW; GLUCOSE, URINE NEGATIVE (NEGATIVE); KETONES,URINE NEGATIVE (NEGATIVE); LEUKOCYTE ESTERASE,URINE NEGATIVE (NEGATIVE); NITRITE,URINE NEGATIVE (NEGATIVE); PROTEIN,URINE NEGATIVE (NEGATIVE); URINE SPECIFIC GRAVITY 1.017; UROBILINOGEN,URINE NEGATIVE mg/dL (<2.0)
--- NOTE | 2018-08-07 09:27 | ER Document Report ---
ED General - General Chief Complaint: Flank Pain Stated Complaint: FLANK PAIN Time Seen by Provider: 08/07/18 08:04 Notes: Patient is a 73-year-old male that presents to the emergency department for chief complaint of 3 weeks of left low back pain. Patient reports that he is been having off and on sharp pain just lateral to his lumbar spine over the past 3 weeks. He states it depends on the position he is in. He has been doing weighted exercises with extension of his spine, and thinks that may have exacerbated it. He states that the pain is worse with certain movements such as turning in bed, will exacerbate will get a sharp pain in the last 15-20 minutes and then go away. Pain is not particularly constant. He denies any falls or any other significant injury. He states he does have a history of kidney stones, but this is nothing like that pain, that is more constant and more severe than this pain. He denies having any numbness, weakness or tingling associated, denies saddle anesthesia or paresthesia, denies urinary incontinence or retention or stool incontinence. When the pain comes on he rates it as a 6 out of 10, currently he states is not bad, as a 1 out of 10. No other complaints at this time. Past Medical History: Kidney stones Past Surgical History: Kidney stone extraction Social History: Denies tobacco, alcohol or drug use. Family History: Reviewed and noncontributory for presenting illness Allergies: Reviewed, see documented allergy list. REVIEW OF SYSTEMS: Other than noted above, the 12 point review of systems was reviewed with the patient and were negative, all pertinent findings are included in the HPI. PHYSICAL EXAMINATION: Vital signs reviewed, nursing noted reviewed. GENERAL: Well-appearing, well-nourished and in no acute distress. HEAD: Atraumatic, normocephalic. EYES: Eyes appear normal, sclera anicteric, conjunctiva are normal. ENT: Moist mucous membranes. NECK: Normal range of motion, supple without lymphadenopathy LUNGS: Breath sounds clear to auscultation bilaterally and equal. No wheezes rales or rhonchi. HEART: Regular rate and rhythm without murmurs EXTREMITIES: Nontender, good range of motion, no pitting or edema. Back: No midline tenderness to the thoracic or lumbar spine. There is mild tenderness to palpation to the paraspinal musculature of the left lumbar spine, reproducible. Abdomen: Soft, obese, nontender, no pulsatile masses, no rebound, guarding or rigidity. No flank tenderness. NEUROLOGICAL: No focal neurological deficits. Moves all extremities spontaneously Motor and sensory grossly intact on exam. PSYCH: Normal mood, normal affect. SKIN: Warm, Dry, normal turgor, no rashes or lesions noted on exposed skin TRAVEL OUTSIDE OF THE [place] IN LAST 30 DAYS: No - Related Data Allergies/Adverse Reactions: No Known Allergies Allergy (Verified 03/03/17 11:20) Past Medical History - Social History Smoking Status: Unknown if Ever Smoked Family History: Hypertension Patient has suicidal ideation: No Patient has homicidal ideation: No - Past Medical History Cardiac Medical History: Reports: Hx Hypercholesterolemia, Hx Hypertension Endocrine Medical History: Denies: Hx Diabetes Mellitus Type 1, Hx Diabetes Mellitus Type 2 Renal/ Medical History: Reports: Hx Benign Prostatic Hyperplasia, Hx Kidney Stones. Denies: Hx End Stage Renal Disease, Hx Peritoneal Dialysis, Hx Renal Insufficiency Past Surgical History: Reports: Other - Cystoscopy in Dec, 2016 - Immunizations Hx Diphtheria, Pertussis, Tetanus Vaccination: Yes Physical Exam - Vital signs Vitals: Temp Pulse Resp BP Pulse Ox 98.0 F 75 18 153/78 H 96 08/07/18 06:20 08/07/18 06:20 08/07/18 06:20 08/07/18 06:20 08/07/18 06:20 Course - Re-evaluation Re-evalutation: Patient seen and examined vital signs reviewed. He was offered medication such as Tylenol for pain, but declined stating that he had no pain at this time. The patient was re-evaluated and was stable, his x-rays did demonstrate severe spondylosis and degenerative disc disease, likely explain the patient's symptoms, and why they would be worse with his weighted back extension exercises, which she was advised to hold off on for right now, patient is not a candidate for NSAID therapy given history of chronic kidney disease, prescribing tramadol for breakthrough pain advised follow-up with orthopedics. Low suspicion for any intra-abdominal or severe etiology such as AAA, cauda equina syndrome, nephrolithiasis, conus medullaris syndrome. X-rays were reviewed, no calcification of the aorta. Evaluation was most consistent with low back pain, patient given a prescription for tramadol. Plan of care was discussed with the patient at this point, after careful consideration I feel that that patient can be discharged from the emergency department, the patient was educated treatments and reasons to return to the emergency department based on their presumed diagnosis as noted above, they were advised to followup with a primary care physician in 2-3 days. Patient was agreeable to plan of care. *Note is created using voice recognition software and may contain spelling, syntax or grammatical errors. Lumbar Spine X-Ray 08/07/18 08:38 IMPRESSION: SPONDYLOSIS WITHOUT BONE LESION OR FRACTURE. - Vital Signs Vital signs: Temp Pulse Resp BP Pulse Ox 99.0 F 73 16 150/96 H 96 08/07/18 09:53 08/07/18 09:53 08/07/18 09:53 08/07/18 09:53 08/07/18 09:53 Discharge - Discharge Clinical Impression: Back pain Qualifiers: Back pain location: low back pain Chronicity: chronic Back pain laterality: left Sciatica presence: without sciatica Qualified Code(s): M54.5 - Low back pain Condition: Stable Disposition: HOME, SELF-CARE Instructions: Low Back Pain ([facility]) Additional Instructions: Please follow-up with your primary care physician, or with orthopedic surgery, for further evaluation, you may need physical therapy, if your pain is not improving, otherwise use warm compresses for 20 minutes on and 20 minutes off as this may help with her pain, avoid heavy lifting, and take the pain medication as prescribed. You can also take Tylenol 500-1,000 mg every 8 hours as needed for pain. Prescriptions: RX: Tramadol HCl [Ultram] 50 mg PO Q8H PRN #10 tablet PRN Reason: back pain Referrals: YUE SUAREZ MD [Primary Care Provider] - Follow up as needed OBINNA CUELLO MD [ACTIVE STAFF] - Follow up in 3-5 days
--- NOTE | 2018-08-07 09:33 | RADIOLOGY REPORT (SQ) ---
EXAM DESCRIPTION: L SPINE WHOLE COMPLETED DATE/TIME: 08/07/2018 9:22 am REASON FOR STUDY: left low back pain COMPARISON: None. NUMBER OF VIEWS: Five views including obliques. TECHNIQUE: AP, lateral, oblique, and sacral radiographic images acquired of the lumbar spine. LIMITATIONS: None. FINDINGS: MINERALIZATION: Osteopenia. SEGMENTATION: Normal. No transitional anatomy. ALIGNMENT: Normal. VERTEBRAE: Maintained height. No fracture or worrisome bone lesion. DISCS: Multilevel disc space narrowing with osteophytes. POSTERIOR ELEMENTS: Pedicles and facets are intact. No pars defect or posterior arch defects. Facet arthropathy is present. HARDWARE: None in the spine. PARASPINAL SOFT TISSUES: Normal. PELVIS: Intact as visualized. No fractures or worrisome bone lesions. SI joints intact. OTHER: No other significant finding. IMPRESSION: SPONDYLOSIS WITHOUT BONE LESION OR FRACTURE. TECHNICAL DOCUMENTATION: JOB ID: [id number] [employer]- All Rights Reserved Reading location - IP/workstation name: [email or web address]
[2018-08-07 09:55] VITALS: BP 150/96
== END 2018-08-07 09:55 | disposition home or self-care (01) ==
LOC: ER 06:15
DX: M54.5 Low back pain (principal); G89.29 Other chronic pain; I10 Essential (primary) hypertension; Z87.442 Personal history of urinary calculi
CPT/HCPCS: 72110; 81001; 99284